=== PATIENT | male | born 1965 | race African-American/Black ===

== ENCOUNTER 2019-08-08 21:48 | Emergency (ER) | payer MEDICAID ==
[~2019-08-08] VITALS: Ht 188 cm; Wt 99.8 kg
[2019-08-08] MEDS ORDERED: IBUPROFEN600 M1 ORAL (22:04)
[2019-08-08] MEDS ORDERED: Tetanus/Diptheria/Pertussis IM ONE (22:15)
[2019-08-08] MEDS ORDERED: Lidocaine 1% MPF 10mg/ml 5ml INJ ONE (22:15)
[2019-08-08] MEDS ORDERED: Cephalexin 250mg/5ml Susp 100mL Bottle ORAL ONE (22:15)
[2019-08-08] MEDS ORDERED: Bacitracin Oint UD TOPIC ONE (22:30)
[2019-08-08] MEDS ORDERED: Cephalexin 500mg cap ORAL ONE (22:30)
[2019-08-08] MEDS ORDERED: BACITRACIN ZIN1 EACH TOPIC (22:35)
[2019-08-08] MEDS ORDERED: AUGMENTIN 875-1 EAC1 ORAL (22:35)
[2019-08-08 22:41] VITALS: BP 118/80
--- NOTE | 2019-08-08 22:41 | Emergency Room Report ---
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 Injury to the left index finger. Denies any other locations of pain. Denies recent tetanus vaccine. Injury occurred approximately 14 hours prior to arrival. Denies any other locations of injury. No weakness. Reports having some initial bleeding. Allergies: Coded Allergies: HALOPERIDOL (Verified Allergy, Unknown, 08/08/19) COVID-19 Screening Contact w/high risk pt: No Recent Travel to affected area: No Experienced COVID-19 symptoms?: No COVID-19 Testing performed ECONOMIC CONSULTANT: No Patient History Reviewed Nursing Documentation: PMH: Agreed; PSxH: Agreed Nursing Documentation-PMH Past Medical History: No History, Except For Review of Systems All Other Systems: negative except mentioned in HPI Physical Exam Vital Signs Date Time Temp Pulse Resp B/P (MAP) Pulse Ox O2 Delivery O2 Flow Rate FiO2 08/08/19 21:59 98.2 82 14 118/80 (93) 98 General Appearance: well appearing, no apparent distress, alert, GCS 15 Head: normocephalic, atraumatic ENT: hearing grossly normal, normal voice Neck: full range of motion, supple Respiratory: lungs clear, no respiratory distress, speaking full sentences Musculoskeletal: other - Index finger laceration flap approximately 1 cm Neurologic: alert, perfume maker III-XII nml as tested, oriented, normal gait Psychiatric: mood/affect normal Skin: no rash Procedures Laceration/Wound Repair Laceration/Wound Repair : Consent: Emergent Wound Location: upper extremity Wound's Depth, Shape: superficial Wound Length (cm): 1 Wound Explored: clean Irrigated w/ Saline (ccs): 10 Betadine Prep?: Yes Anesthesia: 1% Lidocaine Volume Anesthetic (ccs): 2 Wound Repaired With: sutures Suture Size/Type: 4:0 Number of Sutures: 4 Splint Applied?: Yes Patient Tolerated: Well Complications: None Medical Decision Making Diagnostic Impression: Primary Impression: Laceration ER Course Patient presented for finger laceration. Differential diagnosis include was not limited to nerve injury, delayed presentation, foreign body among others. Patient has a benign exam and does not appear to require any imaging or laboratory testing at this time. Patient appears to have some delayed presentation. Laceration was copiously irrigated does not appear to be contaminated. Given the patient's location of injury and current condition of the finger patient's wound was irrigated and closed after discussion with the patient. Patient was given oral antibiotics and given on prescription for Augmentin. Patient was advised to have the wound rechecked in 3 days. He was advised to have sutures removed in 14 days. This medical record is generated with [employer] On[employer] transmission specialist software. There may be some transmission specialist discrepancies related to use of this software Last Vital Signs Date Time Temp Pulse Resp B/P (MAP) Pulse Ox O2 Delivery O2 Flow Rate FiO2 08/08/19 21:59 98.2 82 14 118/80 (93) 98 Status: improved Disposition: HOME, SELF-CARE Condition: Stable Scripts Bacitracin Zinc* (BACITRACIN ZINC*) 1 Each Packet 1 APPLIC TOPIC THREE TIMES A DAY, #14 PACKET Prov: Eladio Jacques MD 08/08/19 Amoxicillin/Potassium Clav 875-125* (AUGMENTIN 875-125 TABLET*) 1 Each Tablet 1 TAB ORAL TWICE A DAY, #14 TAB Prov: Eladio Jacques MD 08/08/19 Patient Instructions: Laceration Care, Adult Additional Instructions: Follow up for wound recheck in 3 days. Suture removal in 14 days. Eladio Jacques MD August 08, 2019 22:41
[2019-08-08 22:43] VITALS: BP 118/80
== END 2019-08-09 | disposition home or self-care (01) ==
LOC: EMR 22:49
DX: S61.211A Laceration without foreign body of left index finger without damage to nail, initial encounter (principal); W45.8XXA Other foreign body or object entering through skin, initial encounter; Y93.9 Activity, unspecified; Y92.9 Unspecified place or not applicable; Z88.8 Allergy status to other drugs, medicaments and biological substances
CPT/HCPCS: 12001; 90471; 90715; Z7502; 99283